=== PATIENT | female | born 1955 | race Caucasian/White ===

== ENCOUNTER 2018-02-05 10:14 | Emergency (ER) | payer OTHER, MEDICARE ==
[~2018-02-05] VITALS: Ht 157.5 cm; Wt 73.5 kg
[2018-02-05 10:20] VITALS: BP 156/80
--- NOTE | 2018-02-05 10:34 | ED HEAD/FACIAL INJ COMPLAINT ---
History of Present Illness General Chief Complaint: General Adult Stated Complaint: FALL LAST NIGHT, HEADACHE AND SWELLING L EYE Source: patient, family, old records Exam Limitations: no limitations Vital Signs & Intake/Output Vital Signs & Intake/Output Vital Signs Date Time Temp Pulse Resp B/P B/P Pulse O2 O2 Flow FiO2 Mean Ox Delivery Rate 02/05 1020 96.0 70 20 156/80 96 Room Air Allergies Coded Allergies: NO KNOWN ALLERGIES (03/06/12) Triage Note: PT TO ED C/O HEADACHE, BRUISING AND SWELLING TO LEFT EYE. PT STATES SHE WAS WALKING TO THE BATHROOM IN THE MIDDLE OF THE NIGHT AND RAN INTO A WALL. DENIES LOC. PT IS ON ASA AND PLAVIX. LEFT EYE SWOLLEN SHUT, LARGE BRUISE NOTED TO LEFT EYE AND FOREHEAD. DENIES NECK PAIN. TAKEN TO ROOM 2 FOR EVAL. Triage Nurses Notes Reviewed? yes HPI: Patient got up during the night to go to the bathroom. When she arrived there she found that her son was in there so she turned around and her need to get to the other bathroom. Patient was just wearing socks on her feet. Patient slipped and lost her balance and hit her face on the wall. Patient did not fall to the ground. There is no loss of consciousness. This morning she woke up and noticed that she was very black and blue on the left side of her head and her left eye was swollen shut and he was very ecchymotic. Patient also began to develop a very slight throbbing headache to the top of her head. There is no radiation of pain. She rates as 3 out of 10. There are no aggravating or mitigating factors. There is no blurry vision. There is no nausea or vomiting. Patient is on Plavix and aspirin and decided to come in for evaluation. Past History Travel History Traveled to [place] past 21 day No Medical History Any Pertinent Medical History? see below for history Cardiovascular: CAD, hypertension, hyperlipidemia Psychiatric: depression, ocd Surgical History Surgical History: non-contributory Psychosocial History What is your primary language [place] Tobacco Use: Current Daily Use Daily Tobacco Use Amount/Type: => 5 Cigarettes daily ETOH Use: denies use Illicit Drug Use: denies illicit drug use Family History Hx Contributory? No Review of Systems Review of Systems Constitutional: Reports: no symptoms. EENTM: Reports: see HPI. Respiratory: Reports: no symptoms. Cardiovascular: Reports: no symptoms. GI: Reports: no symptoms. Genitourinary: Reports: no symptoms. Musculoskeletal: Reports: no symptoms. Skin: Reports: no symptoms. Neurological/Psychological: Reports: see HPI, headache. Hematologic/Endocrine: Reports: no symptoms. Immunologic/Allergic: Reports: no symptoms. All Other Systems: Reviewed and Negative Physical Exam Physical Exam General Appearance: well developed/nourished, alert, awake, anxious, mild distress Head: evidence of injury, contusions, ecchymosis Eyes: Bilateral: PERRL, EOMI, other (ECCHYMOSIS, SWELLING, LEFT). Ears, Nose, Throat: normal pharynx, normal ENT inspection, hearing grossly normal Neck: normal inspection, supple, full range of motion, no midline tenderness Respiratory: normal breath sounds, chest non-tender, no respiratory distress, lungs clear Cardiovascular: regular rate/rhythm, normal peripheral pulses Gastrointestinal: normal bowel sounds, soft, non-tender, no organomegaly Back: normal inspection, normal range of motion Extremities: normal inspection, normal capillary refill, normal range of motion, no edema Psychiatric: awake, alert, oriented x 3 Cranial Nerves: normal hearing, normal speech, PERRL Coordination/Gait: normal gait Motor/Sensory: no motor/sensory deficits Skin: intact, normal color, warm/dry Lymphatic: no anterior cervical silvano Progress Differential Diagnosis: c-spine injury, facial fracture, ICH, skull fracture Plan of Care: Orders Procedure Date/time Status CT HEAD WO IV CONTRAST 02/[address] MAXILLOFACIAL W/O CON 02/[address] CERV SPINE WO IV CONTRAST 02/05 1033 Active Diagnostic Imaging: Viewed by Me: CT Scan. Discussed w/RAD: CT Scan. Radiology Impression: PATIENT: MONIKA OSBORNE PRESENT AGE : 62 PATIENT ACCOUNT NO: [id number] : 57 LOCATION: [facility] ORDERING PHYSICIAN: Saqib Rabago MD SERVICE DATE: 02/05/18 EXAM TYPE: CAT - CT CERV SPINE WO IV CONTRAST; CT HEAD WO IV CONTRAST; CT MAXILLOFACIAL W/O CON EXAMINATION: CT HEAD WITHOUT CONTRAST CT CERVICAL SPINE WITHOUT CONTRAST CT MAXILLOFACIAL WITHOUT CONTRAST CLINICAL INFORMATION: Head injury. Injury. COMPARISON: None TECHNIQUE: CT of the head, cervical spine, and maxillofacial structures was performed without intravenous contrast. Multiplanar reformats were rendered and reviewed. DLP: 1786 mGy-cm. FINDINGS: CT HEAD: There is large amount of subgaleal hematoma and soft tissue contusion about the left frontal scalp there is no calvarial fracture. There is no intracranial hemorrhage or extra-axial collection. There is no CT evidence of large territory infarction or mass. There is chronic appearing lacunar infarct within the right caudate head. The ventricles are normal in size and configuration without evidence of hydrocephalus. CT MAXILLOFACIAL: There is subgaleal hematoma and soft tissue contusion in the left frontal scalp extending into the preseptal and premalar soft tissues. The orbital thrasher and orbital rims are intact. There is no infiltration of the intraorbital fat or evidence of retrobulbar hematoma. The extraocular muscles and optic nerve sheath complexes are symmetric and normal in appearance. The globes are normal and symmetric. The zygomas and zygomaticomaxillary buttresses are intact. The nasal bones and naso-orbito- ethmoid complex are intact. The maxillary alveolus and hard palate are intact. The mandible is intact with mandibular condyles normally positioned within the glenoid fossa. The osseous structures of the central skull base are intact. The paranasal sinuses demonstrate mild scattered mucosal thickening without fluid levels. The mastoid air cells and middle ear cavities are clear. CT CERVICAL SPINE: The cervical vertebral bodies maintain normal heights and alignment. No fracture is seen. The craniovertebral junction is intact. There is intervertebral disc height loss at C5-C6 and C6-C7. There is no high-grade osseous encroachment on the spinal canal or neural foramina. The lung apices are clear. There are numerous surgical clips in the left neck along the carotid sheath. IMPRESSION: CT HEAD: - Large amount of subgaleal hematoma and contusion about the left frontal scalp. No calvarial fracture or intracranial hemorrhage. - Chronic lacunar infarct in the left caudate head. CT CERVICAL SPINE: - No cervical spine fracture or malalignment. CT MAXILLOFACIAL: - Left preseptal and premalar subgaleal hematoma and contusion. - No maxillofacial fracture. The orbital thrasher and rims are intact. DICTATED BY: Kendra Calvillo MD DATE/TIME DICTATED:02/05/181121 FACE WORKER:JOSE DATE/TIME TRANSCRIBED:1121 CONFIDENTIAL, DO NOT COPY WITHOUT APPROPRIATE AUTHORIZATION. < Electronically signed in Other Vendor System> SIGNED BY: Kendra Calvillo MD 02/05/18 3808 Comments: Patient has been updated on CAT scan results. Patient will follow-up with Dr. Zarco. Patient is stable for discharge. Questions have been answered. Departure Departure Disposition: HOME OR SELF CARE Condition: Stable Clinical Impression Primary Impression: Head injury Referrals: Uday REYES,Parminder Alaniz (PCP/Family) Lamonte REYES,Ephraim Hernandez Additional Instructions: FOLLOW UP WITH DR. ADAIR RETURN IF SYMPTOMS WORSEN OR FOR ANY CONCENRS Departure Forms: Customer Survey General Discharge Information
--- NOTE | 2018-02-05 11:40 | CT SCAN REPORT ---
EXAMINATION: CT HEAD WITHOUT CONTRAST CT CERVICAL SPINE WITHOUT CONTRAST CT MAXILLOFACIAL WITHOUT CONTRAST CLINICAL INFORMATION: Head injury. Injury. COMPARISON: None TECHNIQUE: CT of the head, cervical spine, and maxillofacial structures was performed without intravenous contrast. Multiplanar reformats were rendered and reviewed. DLP: 1786 mGy-cm. FINDINGS: CT HEAD: There is large amount of subgaleal hematoma and soft tissue contusion about the left frontal scalp there is no calvarial fracture. There is no intracranial hemorrhage or extra-axial collection. There is no CT evidence of large territory infarction or mass. There is chronic appearing lacunar infarct within the right caudate head. The ventricles are normal in size and configuration without evidence of hydrocephalus. CT MAXILLOFACIAL: There is subgaleal hematoma and soft tissue contusion in the left frontal scalp extending into the preseptal and premalar soft tissues. The orbital thrasher and orbital rims are intact. There is no infiltration of the intraorbital fat or evidence of retrobulbar hematoma. The extraocular muscles and optic nerve sheath complexes are symmetric and normal in appearance. The globes are normal and symmetric. The zygomas and zygomaticomaxillary buttresses are intact. The nasal bones and reed-zlpxal-[id number] complex are intact. The maxillary alveolus and hard palate are intact. The mandible is intact with mandibular condyles normally positioned within the glenoid fossa. The osseous structures of the central skull base are intact. The paranasal sinuses demonstrate mild scattered mucosal thickening without fluid levels. The mastoid air cells and middle ear cavities are clear. CT CERVICAL SPINE: The cervical vertebral bodies maintain normal heights and alignment. No fracture is seen. The craniovertebral junction is intact. There is intervertebral disc height loss at C5-C6 and C6-C7. There is no high-grade osseous encroachment on the spinal canal or neural foramina. The lung apices are clear. There are numerous surgical clips in the left neck along the carotid sheath. IMPRESSION: CT HEAD: - Large amount of subgaleal hematoma and contusion about the left frontal scalp. No calvarial fracture or intracranial hemorrhage. - Chronic lacunar infarct in the left caudate head. CT CERVICAL SPINE: - No cervical spine fracture or malalignment. CT MAXILLOFACIAL: - Left preseptal and premalar subgaleal hematoma and contusion. - No maxillofacial fracture. The orbital thrasher and rims are intact.
== END 2018-02-05 11:58 ==
LOC: ERH 10:14
DX: S09.90XA Unspecified injury of head, initial encounter (principal); W01.0XXA Fall on same level from slipping, tripping and stumbling without subsequent striking against object, initial encounter; Y92.9 Unspecified place or not applicable; Y93.9 Activity, unspecified